=== PATIENT | female | born 1955 | race Hispanic/Latino ===

== ENCOUNTER 2020-08-04 23:09 | Emergency (ER) | payer MEDICARE, MEDICAID | END 2020-08-04 23:55 | disposition home or self-care (01) | LOC: ERS 23:09 | DX: M15.9 Polyosteoarthritis, unspecified (principal); F17.210 Nicotine dependence, cigarettes, uncomplicated | CPT/HCPCS: 99283 ==

== ENCOUNTER 2025-01-02 12:41 | Emergency (ER) | payer MEDICARE, MEDICAID ==
[2025-01-02] MEDS ORDERED: NOREPINEPHRINE 8 MG/250 ML-D5W 250 ML ONE (12:58)
[2025-01-02] MEDS ORDERED: Vasopressin In 0.9 % NaCl 0 ML ONE (13:17)
[2025-01-02 13:38] LABS: Hematocrit 50.8 % (36.0-47.0); Hemoglobin 15.7 g/dL (12.0-16.0); Mean Corpuscular Hemoglobin 28.7 pg (27.0-31.0); Mean Corpuscular Volume 92.9 fL (78.0-98.0); Platelet Count 141 10x3/uL (130-400); Red Blood Cell (RBC) Count 5.47 mill/uL (4.20-5.40); White Blood Cell (WBC) Count 21.40 10x3/uL (4.8-10.8)
[2025-01-02] MEDS ORDERED: Adenosine 6 mg (2 mL) VIAL ONE (13:42)
[2025-01-02 13:43] LABS: ALT (SGPT) 163 U/L (Less than 34); AST (SGOT) 237 U/L (11-34); Albumin 3.0 g/dL (3.1-4.5); Alkaline Phosphatase 125 U/L (40-110); Anion Gap 25 mmol/L (10-20); BUN (Urea Nitrogen) 8 mg/dL (9.8-20.1); Bilirubin, Total 1.5 mg/dL (0.3-1.2); Calc. Creatinine Clearance 0 mL/min (70-130); Calcium 8.1 mg/dL (7.8-10.44); Carbon Dioxide 16 mmol/L (23-31); Chloride 97 mmol/L (98-107); Globulin 3.9 g/dL (2.4-3.5); Glucose 520 mg/dL (83-110); Lipase 25 U/L (8-78); Magnesium 2.3 mg/dL (1.6-2.6); Potassium 4.7 mmol/L (3.5-5.1); Sodium 133 mmol/L (136-145)
[2025-01-02] MEDS ORDERED: Nitroglycerin 50 MG/250 ML BOT 0 ML ONE (13:43)
[2025-01-02] MEDS ORDERED: Heparin 10,000 UNITS/ 10 ML VIAL ONE (13:43)
[2025-01-02] MEDS ORDERED: PHENYLEPHRINE-NS 100 MCG/ML 10 ML SYRINGE ONE (13:43)
[2025-01-02 13:59] LABS: INR-International Normal Ratio 1.3; Prothrombin Time 16.4 sec (12.0-14.7)
[2025-01-02 14:00] LABS: PTT 41.8 sec (22.9-36.1)
[2025-01-02 14:27] LABS: Platelet Adequacy Comment Platelets Normal; Polychromasia SLIGHT = 2-3 cells HPF (0-2); Smudge Cells 12.6 %; Toxic Granulation SLIGHT
== END 2025-01-02 13:55 | disposition expired ==
LOC: ERS 12:41
DX: I46.9 Cardiac arrest, cause unspecified (principal); I21.3 ST elevation (STEMI) myocardial infarction of unspecified site; F17.210 Nicotine dependence, cigarettes, uncomplicated
CPT/HCPCS: 71045; 83690; 83735; 83880; 84484; 85610; 85730; 93005; 94002; J1644; J2250; J3010; 36556; 80053; 84443; 85025; 92950; 96374; J0153; J0461